=== PATIENT | female | born 1995 | race Caucasian/White ===

== ENCOUNTER 2020-05-02 22:20 | Emergency (ER) | payer MEDICAID ==
[~2020-05-02] VITALS: Ht 152.4 cm; Wt 54.0 kg
[~2020-05-02 22:20] MED LIST: AC325T PO; ACHD5005 PO; ALBU17AE23 IH; AMOX250C PO; AMOX500C2 PO; CEPH500C PO; CIPR500T5 PO; CIPR500T78 PO; CITA20TA4 PO; CLOT15CR4 TP; CYCL10TA9 PO; DOXY100C2 PO; FERR-57 PO; FERR240T9 PO; FERR27TA PO; FERR325C PO; FLUC150T PO; FRS325T PO; HYDR-1231 PO; HYDR-3714 PO; HYDR1TAB PO; IBP600T1 PO; IBUP200C PO; KETO-22 PO; LEVO750T6 PO; NAPR-243 PO; NAPR-915 PO; NITR-65 PO; NITR100C3 PO; ONDA-43 PO; PERM60CR4 TP; PHEN100T26 PO; PHEN200T27 PO; PREN-93 PO; PREN1TAB25 PO; PREN1TAB39 PO; PREN1TAB71 PO; SULF-222 PO; SULF1TAB38 PO; TRAM50TA2 PO
[2020-05-02 23:08] LABS: BILIRUBIN,URINE NEGATIVE (NEGATIVE); CLARITY,URINE SL CLOUDY; COLOR,URINE YELLOW; GLUCOSE, URINE (UA) NEGATIVE (NEGATIVE); KETONES,URINE NEGATIVE (NEGATIVE); LEUKOCYTE ESTERASE ,URINE 2+ (NEGATIVE); NITRITE,URINE POSITIVE (NEGATIVE); PH,URINE 7.5 (5-9); PROTEIN,URINE NEGATIVE (NEGATIVE)
[2020-05-02 23:21] LABS: BACTERIA,URINE LARGE /HPF
[2020-05-02 23:36] LABS: BASOPHILS # (AUTO) 0.1 10^3/uL (0.0-0.1); BASOPHILS % (AUTO) 1 % (0-10); EOSINOPHILS # (AUTO) 0.1 10^3/uL (0.0-0.3); EOSINOPHILS % (AUTO) 1 % (0-10); HEMATOCRIT 37 % (35-52); HEMOGLOBIN 12.5 g/dL (11.5-16.0); LYMPHOCYTES # (AUTO) 2.3 10^3/uL (1.0-4.0); LYMPHOCYTES % (AUTO) 17 % (12-44); MEAN CORPUSCULAR HEMOGLOBIN 31 pg (25-34); MEAN CORPUSCULAR HGB CONC 34 g/dL (32-36); MEAN CORPUSCULAR VOLUME 91 fL (80-99); MEAN PLATELET VOLUME 9.1 fL (9.0-12.2); MONOCYTES # (AUTO) 0.7 10^3/uL (0.0-1.0); MONOCYTES % (AUTO) 5 % (0-12); NEUTROPHILS # (AUTO) 9.9 10^3/uL (1.8-7.8); NEUTROPHILS % (AUTO) 75 % (42-75); PLATELET COUNT 336 10^3/uL (130-400); WHITE BLOOD COUNT 13.1 10^3/uL (4.3-11.0)
[2020-05-02 23:59] LABS: ALANINE AMINOTRANSFERASE 21 U/L (0-55); ALBUMIN 4.2 GM/DL (3.2-4.5); ALKALINE PHOSPHATASE 52 U/L (40-136); BILIRUBIN,TOTAL 0.4 MG/DL (0.1-1.0); BUN/CREATININE RATIO 11; CARBON DIOXIDE 22 MMOL/L (21-32); CHLORIDE 105 MMOL/L (98-107); CREATININE SERUM 0.57 MG/DL (0.60-1.30); GFR ESTIMATED > 60; GLUCOSE 97 MG/DL (70-105); POTASSIUM 3.3 MMOL/L (3.6-5.0); SODIUM 138 MMOL/L (135-145); TOTAL PROTEIN 7.1 GM/DL (6.4-8.2)
--- NOTE | 2020-05-03 01:03 | ED Abdominal Pain ---
General Chief Complaint: Abdominal/GI Problems Stated Complaint: APPROX 8 WKS PREG/L SIDE PAIN Nursing Triage Note: TO ED VIA POV AND AMBULATORY TO ROOM 3 WITH C/O ABD PAIN FOR ONE WEEK. STATES 7-[address] WITH APPT WITH DR. WARE IN EARLY MAY. Sepsis Screen: No Definite Risk Source of Information: Patient Exam Limitations: No Limitations History of Present Illness Date Seen by Provider: May 02, 2020 Time Seen by Provider: 22:23 Initial Comments This 25-year-old woman at approximately 8 weeks gestational age presents to the emergency room with left lower quadrant pain intermittently for the past week. It was worse tonight. She had a confirmed positive test at the [facility] about 2 weeks ago. She has not yet had an ultrasound. She has some nausea but denies any other symptoms. 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 She has required nephrostomy in the past. She also had a ruptured right ectopic requiring surgery in the past. Allergies and Home Medications Allergies Coded Allergies: No Known Drug Allergies (Unverified , 05/31/15) Home Medications Cephalexin 500 Mg Tablet, 500 MG PO TID Prescribed by: BOO ABEL on 05/03/20 0155 Ciprofloxacin HCl 500 Mg Tablet, 500 MG PO BID Prescribed by: RYAN FLORES on 04/07/15 0830 Clotrimazole/Betamethasone Dip 15 Gm Cream..g., 15 GM TP UD apply sparingly to affected areas BID x10-14 days Prescribed by: MULUGETA BENITO on 05/30/15 1324 Permethrin 60 Gm Cream..g., 60 GM TP UD repeat in 14 days Prescribed by: MULUGETA BENITO on 05/30/15 1324 Patient Home Medication List Home Medication List Reviewed: Yes Review of Systems Review of Systems Constitutional: no symptoms reported EENTM: No Symptoms Reported Respiratory: No Symptoms Reported Cardiovascular: No Symptoms Reported Gastrointestinal: See HPI Genitourinary: See HPI Musculoskeletal: no symptoms reported Skin: no symptoms reported Psychiatric/Neurological: No Symptoms Reported Endocrine: No Symptoms Reported Hematologic/Lymphatic: No Symptoms Reported Past Htyanrz-Jqymra-Xzxyqs Hx Past Med/Social Hx: Reviewed Nursing Past Med/Soc Hx Patient Social History Alcohol Use: Denies Use Smoking Status: Current Everyday Smoker Recent Infectious Disease Expo: No Immunizations Up To Date Tetanus Booster (TDap): Unknown Date of Pneumonia Vaccine: Apr 23, 2014 Date of Influenza Vaccine: Nov 22, 2013 Seasonal Allergies Seasonal Allergies: No Past Medical History Surgeries: Yes (D&C X2 -retained placenta, Cystoscopy, 1 wisdom tooth, R Nephrostomy Tube) Renal Respiratory: No Currently Using CPAP: No Currently Using BIPAP: No Cardiac: No Neurological: No : Yes Last Menstrual Period: Mar 10, 2020 Reproductive Disorders: No Female Reproductive Disorders: Denies, Ovarian Cyst Sexually Transmitted Disease: No HIV/AIDS: No Genitourinary: Yes (Right ureteral malformation requiring nephrostomy tubes in the past) Kidney Stones, UTI-Chronic Gastrointestinal: Yes ("Gall Bladder Attacks"PER PT) Crohns Disease Musculoskeletal: No Endocrine: No Loss of Vision: Denies Hearing Impairment: Denies Cancer: No Psychosocial: No Integumentary: No Blood Disorders: Yes (Anemia) Adverse Reaction/Blood Tranf: Yes Family Medical History Alcoholism 19 FATHER Grandparents (Paternal Grandfather) Arthritis 19 FATHER 19 MOTHER Grandparents (Paternal Grandmother) Asthma Grandparents (Paternal Grandmother) Cataracts Grandparents (Maternal Grandmother Paternal Grandfather) Completed stroke Grandparents (Maternal Grandfather) Deafness or hearing loss 19 MOTHER Diabetes mellitus Grandparents (Paternal Grandmother) Fibrocystic disease of breast Grandparents (Maternal Grandmother) Hypertension 19 FATHER 19 MOTHER Grandparents (All Grandparents) Myocardial infarction Grandparents (Maternal Grandfather) Pacemaker Grandparents (Maternal Grandfather) Psychosocial problem Grandparents (Paternal Grandfather- PTSD) Thyroid disease Grandparents (Paternal Grandmother?) No Family History of: AIDS Abdominal aortic aneurysm Serjio's disease Alzheimer's disease Aphasia Cancer of mouth Cardiovascular disease Colon cancer Congenital disease Congenital heart disease Coronary thrombosis Cystic fibrosis Dementia Drug abuse Dysphasia Gastroenteritis Glaucoma Headache disorder Hypercholesterolemia Infertility Kidney disease Neoplasm Not obtainable due to adoption Osteoporosis Parkinson's disease Prostate cancer Respiratory disorder Seizure disorder Severe allergy Tuberculosis Visual disorder No Pertinent Family Hx Physical Exam Vital Signs Vital Signs - First Documented 05/02/20 05/03/20 22:50 02:00 Temp 36.0 Pulse 98 Resp 16 B/P (MAP) 129/81 (97) Pulse Ox 99 O2 Delivery Room Air Capillary Refill : Less Than 3 Seconds Height/Weight/BMI Height: 5'0.00" Weight: 111lbs. 5.0oz. 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, no motor/sensory deficits, alert, normal mood/affect, oriented x 3 Skin: normal color, warm/dry Progress/Results/Core Measures Results/Orders Lab Results Laboratory Tests Test 05/02/20 23:00 05/02/20 23:27 Range/Units Urine Color YELLOW Urine Clarity SL CLOUDY Urine pH 7.5 5-9 Urine Specific [place] 1.015 L 1.016-1.022 Urine Protein NEGATIVE NEGATIVE Urine Glucose (UA) NEGATIVE NEGATIVE Urine Ketones NEGATIVE NEGATIVE Urine Nitrite POSITIVE H NEGATIVE Urine Bilirubin NEGATIVE NEGATIVE Urine Urobilinogen 0.2 < = 1.0 MG/DL Urine Leukocyte Esterase 2+ H NEGATIVE Urine RBC (Auto) NEGATIVE NEGATIVE Urine RBC NONE /HPF Urine WBC 2-5 /HPF Urine Squamous Epithelial Cells 10-25 H /HPF Urine Crystals NONE /LPF Urine Bacteria LARGE H /HPF Urine Casts NONE /LPF Urine Mucus NEGATIVE /LPF Urine Culture Indicated YES White Blood Count 13.1 H 4.3-11.0 10^3/uL Red Blood Count 4.08 3.80-5.11 10^6/uL Hemoglobin 12.5 11.5-16.0 g/dL Hematocrit 37 35-52 % Mean Corpuscular Volume 91 80-99 fL Mean Corpuscular Hemoglobin 31 25-34 pg Mean Corpuscular Hemoglobin Concent 34 32-36 g/dL Red Cell Distribution Width 12.9 10.0-14.5 % Platelet Count 336 130-400 10^3/uL Mean Platelet Volume 9.1 9.0-12.2 fL Immature Granulocyte % (Auto) 1 % Neutrophils (%) (Auto) 75 42-75 % Lymphocytes (%) (Auto) 17 12-44 % Monocytes (%) (Auto) 5 0-12 % Eosinophils (%) (Auto) 1 0-10 % Basophils (%) (Auto) 1 0-10 % Neutrophils # (Auto) 9.9 H 1.8-7.8 10^3/uL Lymphocytes # (Auto) 2.3 1.0-4.0 10^3/uL Monocytes # (Auto) 0.7 0.0-1.0 10^3/uL Eosinophils # (Auto) 0.1 0.0-0.3 10^3/uL Basophils # (Auto) 0.1 0.0-0.1 10^3/uL Immature Granulocyte # (Auto) 0.1 0.0-0.1 10^3/uL Sodium Level 138 135-145 MMOL/L Potassium Level 3.3 L 3.6-5.0 MMOL/L Chloride Level 105 98-107 MMOL/L Carbon Dioxide Level 22 21-32 MMOL/L Anion Gap 11 5-14 MMOL/L Blood Urea Nitrogen 6 L 7-18 MG/DL Creatinine 0.57 L 0.60-1.30 MG/DL Estimat Glomerular Filtration Rate > 60 BUN/Creatinine Ratio 11 Glucose Level 97 70-105 MG/DL Calcium Level 9.0 8.5-10.1 MG/DL Corrected Calcium 8.8 8.5-10.1 MG/DL Total Bilirubin 0.4 0.1-1.0 MG/DL Aspartate Amino Transf (AST/SGOT) 17 5-34 U/L Alanine Aminotransferase (ALT/SGPT) 21 0-55 U/L Alkaline Phosphatase 52 40-136 U/L C-Reactive Protein High Sensitivity 0.70 H 0.00-0.50 MG/DL Total Protein 7.1 6.4-8.2 GM/DL Albumin 4.2 3.2-4.5 GM/DL Human Chorionic Gonadotropin, Quant 140876 H <5 MIU/ML My Orders Orders - BOO GAN MD Ua Culture If Indicated (05/02/20 22:23) Cbc With Automated Diff (05/02/20 23:12) Comprehensive Metabolic Panel (05/02/20 23:12) Hs C Reactive Protein (05/02/20 23:12) Hcg,Quantitative (05/02/20 23:12) Urine Culture (05/02/20 23:00) Cephalexin Capsule (Keflex Capsule) (05/03/20 02:00) Us Ob<14 Wks Sngle W/Transvag (05/03/20 00:25) Medications Given in ED Current Medications Medications Dose Ordered Sig/Xu Route Start Time Stop Time Status Last Admin Dose Admin Cephalexin HCl 500 mg ONCE ONCE PO 05/03/20 02:00 05/03/20 02:00 DC 05/03/20 01:59 500 MG Vital Signs/I&O 05/02/20 05/03/20 22:50 02:00 Temp 36.0 36.0 Pulse 98 79 Resp 16 16 B/P (MAP) 129/81 (97) 128/83 (97) Pulse Ox 99 O2 Delivery Room Air Room Air Blood Pressure Mean: 97 Progress Progress Note : Progress Note Ultrasound revealed a viable intrauterine . Patient was treated with Keflex for possible urinary tract infection. Diagnostic Imaging Diagonstic Imaging: Ultrasound Plain Films/CT/US/NM/MRI: pelvis Comments Ultrasound revealed a viable intrauterine at approximately 9 weeks gestational age with EDC of December 06. No acute pathology identified. Departure Impression Primary Impression: left lower quadrant pain Additional Impressions: Qualified Codes: Z3A.08 - 8 weeks gestation of Urinary tract infection Qualified Codes: N39.0 - Urinary tract infection, site not specified Disposition: HOME, SELF-CARE Condition: Improved Departure-Patient Inst. Decision time for Depature: 01:53 Referrals: NO,LOCAL PHYSICIAN (PCP/Family) Primary Care Physician Patient Instructions: Severe Abdominal Pain, Adult (DC), Urinary Tract Infection, Adult (DC) Add. Discharge Instructions: Drink plenty of clear liquids to stay well-hydrated. You may safely take Tylenol (acetaminophen) up to 1000 mg every 6 hours as needed while you are . Complete your antibiotic as prescribed. Follow-up with your obstetrical provider soon as possible. Return to care if you have worsening symptoms or if you develop new symptoms such as fever. Call with questions or concerns. All discharge instructions reviewed with patient and/or family. Voiced understanding. Scripts Cephalexin (Cephalexin) 500 Mg Tablet 500 MG PO TID, #20 TAB Prov: BOO GAN MD 05/03/20 Copy Copies To 1: SAMUEL WARE JOSHUA T MD May 03, 2020 01:03
[2020-05-03] MEDS ORDERED: CEPH500T PO (01:55)
[2020-05-03 02:00] VITALS: BP 128/83
[2020-05-03] MEDS ORDERED: CEPHALEXIN 250 MG (KEFLEX) CAP PO ONE (02:00)
--- NOTE | 2020-05-03 07:14 | Diagnostic Imaging Report ---
Indication: Left lower quadrant pain previous right-sided ectopic. Exam confirms the presence of a plunkett intrauterine viable gestation with heart rate 172 bpm. [place]-rump length of 2.3 cm correlates with an age 19 weeks 0 days for sonographic date of confinement 12/07/2019. There is no irena-sac or subchorionic hemorrhage. The amniotic fluid volume appeared within normal limits and there is no evidence for extrauterine gestation or adnexal torsion. There is no free fluid. Impression: [place]ett viable IUP measures 9 week 0 day with no pathological finding identified. Dictated by: Dictated on workstation # [id number]
== END 2020-05-03 02:00 | disposition home or self-care (01) ==
LOC: EDUNIT# 22:20 → ER 22:22
DX: O23.41 Unspecified infection of urinary tract in pregnancy, first trimester (principal); O99.331 Smoking (tobacco) complicating pregnancy, first trimester; F17.200 Nicotine dependence, unspecified, uncomplicated; Z3A.09 9 weeks gestation of pregnancy
CPT/HCPCS: 36415; 76801; 76817; 80053; 81000; 84702; 85025; 86141; 87077; 87088

== ENCOUNTER → 2020-05-05 | Outpatient (CLI) | payer MEDICAID ==
[~2020-05-05] MED LIST changes: +CEPH500T PO
== END ==
LOC: RAD 13:54
PROVIDERS: ATTEND Obstetrics & Gynecology
DX: Z87.59 Personal history of other complications of pregnancy, childbirth and the puerperium (principal)